=== PATIENT | female | born 1985 | race African-American/Black ===

== ENCOUNTER 2016-12-30 09:06 | Emergency (ER) | payer BC ==
[2016-12-30 09:09] VITALS: BP 116/58; PULSE 75; TEMP 98.6; BMI 25.9
[2016-12-30] MEDS ORDERED: ONDANSETRON 4 MG TABLET PO ONE (09:35)
[2016-12-30] MEDS ORDERED: ACETAMINOPHEN 325 MG TABLET (FP) PO ONE (09:35)
[2016-12-30 09:39] LABS: URINE APPEARANCE CLEAR; URINE BILIRUBIN NEGATIVE (NEGATIVE); URINE COLOR YELLOW; URINE GLUCOSE (UA) NEGATIVE (NEGATIVE); URINE KETONE TRACE (NEGATIVE); URINE NITRITE NEGATIVE (NEGATIVE); URINE PROTEIN NEGATIVE (NEGATIVE); URINE UROBILINOGEN NEGATIVE E.U./dl (0.2-1.0)
[2016-12-30 09:40] LABS: URINE BLOOD 1+ (NEGATIVE); URINE LEUK ESTERASE TRACE (NEGATIVE)
--- NOTE | 2016-12-30 09:40 | PDOC ---
History of Present Illness - General History Source: Patient - History of Present Illness Timing/Duration: reports: intermittent Quality: reports: mild Abdominal Pain Onset Location: reports: other (lower abd) <LebaneseYasir - Last Filed: 12/30/16 09:55> <Alejandra Howell - Last Filed: 12/30/16 10:24> - General Chief Complaint: Pain, Acute Stated Complaint: VOMITING Time Seen by Provider: 12/30/16 09:21 Past History - Past Medical History Other medical history: denies. - Psycho/Social/Smoking Cessation Hx Anxiety: No Suicidal Ideation: No Smoking History: Never smoked Hx Alcohol Use: No Drug/Substance Use Hx: No <Yasir Elizalde - Last Filed: 12/30/16 09:55> <Alejandra Howell - Last Filed: 12/30/16 10:24> - Past Medical History Allergies/Adverse Reactions: Allergies Allergy/AdvReac Type Severity Reaction Status Date / Time No Known Allergies Allergy Verified 12/30/16 09:07 Home Medications: Ambulatory Orders Norethindrone-E.estradiol-Iron [Lo Loestrin Fe 1-10 Tablet] 1 tab PO DAILY 12/30 Ondansetron HCl [Zofran] 4 mg PO Q8H #12 tablet 12/30/16 Review of Systems - Review of Systems Constitutional: No: Chills, Fever, Malaise ABD/GI: Yes: Nausea, Vomiting, Abdominal cramping. No: Diarrhea : No: Dysuria, Flank Pain, Hematuria <Yasir Elizalde - Last Filed: 12/30/16 09:55> *Physical Exam - Vital Signs Last Vital Signs Temp Pulse Resp BP Pulse Ox 98.6 F 75 18 116/58 100 12/30/16 09:07 12/30/16 09:07 12/30/16 09:07 12/30/16 09:07 12/30/16 09:07 - Physical Exam General Appearance: Yes: Appropriately Dressed. No: Apparent Distress HEENT: positive: Normal Voice Neck: positive: Supple Respiratory/Chest: negative: Respiratory Distress Gastrointestinal/Abdominal: positive: Soft. negative: Tender (no tenderness over mcburneys), Distended, Guarding, Rebound Musculoskeletal: negative: CVA Tenderness Integumentary: positive: Dry, Warm Neurologic: positive: Fully Oriented, Alert, Normal Mood/Affect <Yasir Elizalde - Last Filed: 12/30/16 09:55> - Vital Signs Last Vital Signs Temp Pulse Resp BP Pulse Ox 98.6 F 75 18 116/58 100 12/30/16 09:07 12/30/16 09:07 12/30/16 09:07 12/30/16 09:07 12/30/16 09:07 <Alejandra Howell - Last Filed: 12/30/16 10:24> ED Treatment Course - ADDITIONAL ORDERS Additional order review: Laboratory Results 12/30/16 09:30 Urine Color Yellow Urine Appearance Clear Urine pH 5.0 Urine Protein Negative Urine Glucose (UA) Negative Urine Ketones Trace H Urine Blood 1+ H Urine Nitrite Negative Urine Bilirubin Negative Urine Urobilinogen Negative Ur Leukocyte Esterase Trace H Urine RBC 21 Urine WBC 4 Ur Epithelial Cells Few Urine Mucus Moderate Urine HCG, Qual Negative - Medications Given in the ED: ED Medications Discontinued Medications Generic Name Dose Route Start Last Admin Trade Name Nicholas PRN Reason Stop Dose Admin Acetaminophen 650 mg 12/30/16 09:35 12/30/16 09:50 Tylenol - PO 12/30/16 09:36 650 mg ONCE ONE Administration Ondansetron HCl 4 mg 12/30/16 09:35 12/30/16 09:44 Zofran - PO 12/30/16 09:36 4 mg ONCE ONE Administration <Alejandra Howell - Last Filed: 12/30/16 10:24> Medical Decision Making - Medical Decision Making 12/30/16 09:35 31-year-old female, denies any past medical history, here with nausea, vomiting and lower abdominal pain. Patient states for the past 2 days, has had 2 e/o NB , NB vomitus and at some point developed crampy lower abdominal pain. Denies diarrhea, fever or chills. States her son has similar symptoms at home. States she called out of work today and requesting work note See exam Gastroenteritis Toddler son with similar sxs at home No RF for serious dysentery Well lorene and stable w/ benign abd M/l viral -dc w/ supportive tx <Yasir Elizalde - Last Filed: 12/30/16 09:55> *DC/Admit/Observation/Transfer <LebaneseShannan lastDmitry - Last Filed: 12/30/16 09:55> - Attestations Physician Attestion: I reviewed the case with the mid-level practitioner and agree with the mid- level practitioner's assessment, diagnosis and disposition. <Alejandra Howell - Last Filed: 12/30/16 10:24> Diagnosis at time of Disposition: Gastroenteritis - Discharge Dispostion Disposition: HOME Condition at time of disposition: Good - Prescriptions Prescriptions: Ondansetron HCl [Zofran] 4 mg PO Q8H #12 tablet - Patient Instructions Printed Discharge Instructions: Viral Gastroenteritis Additional Instructions: Maintain adequate hydration and take zofran as needed for nausea Return for worsening of symptoms - Post Discharge Activity Work/School Note: Back to Work
[2016-12-30 09:41] LABS: URINE MUCUS MODERATE; URINE RBC 21 /hpf (0-3); URINE WBC 4 /hpf (3-5)
[2016-12-30] MEDS ORDERED: ONDANSETRON *ODT* 4 MG TABLET ONE (09:41)
[2016-12-30] MEDS ORDERED: ACETAMINOPHEN 325 MG TABLET (FP) ONE (09:41)
--- NOTE | 2016-12-30 09:57 | PDOC ---
*Physical Exam - Vital Signs Last Vital Signs Temp Pulse Resp BP Pulse Ox 98.6 F 75 18 116/58 100 12/30/16 09:07 12/30/16 09:07 12/30/16 09:07 12/30/16 09:07 12/30/16 09:07 ED Treatment Course - ADDITIONAL ORDERS Additional order review: Laboratory Results 12/30/16 09:30 Urine Color Yellow Urine Appearance Clear Urine pH 5.0 Urine Protein Negative Urine Glucose (UA) Negative Urine Ketones Trace H Urine Blood 1+ H Urine Nitrite Negative Urine Bilirubin Negative Urine Urobilinogen Negative Ur Leukocyte Esterase Trace H Urine RBC 21 Urine WBC 4 Ur Epithelial Cells Few Urine Mucus Moderate Urine HCG, Qual Negative - Medications Given in the ED: ED Medications Discontinued Medications Generic Name Dose Route Start Last Admin Trade Name Nicholas PRN Reason Stop Dose Admin Acetaminophen 650 mg 12/30/16 09:35 12/30/16 09:50 Tylenol - PO 12/30/16 09:36 650 mg ONCE ONE Administration Ondansetron HCl 4 mg 12/30/16 09:35 12/30/16 09:44 Zofran - PO 12/30/16 09:36 4 mg ONCE ONE Administration *DC/Admit/Observation/Transfer Diagnosis at time of Disposition: Gastroenteritis - Discharge Dispostion Disposition: HOME Condition at time of disposition: Good - Prescriptions Prescriptions: Ondansetron HCl [Zofran] 4 mg PO Q8H #12 tablet - Referrals - Patient Instructions Printed Discharge Instructions: Viral Gastroenteritis Additional Instructions: Maintain adequate hydration and take zofran as needed for nausea Return for worsening of symptoms - Post Discharge Activity Work/School Note: Back to Work
== END 2016-12-30 10:02 | disposition home or self-care (01) ==
LOC: JER 09:06
DX: K52.9 Noninfective gastroenteritis and colitis, unspecified (principal)
CPT/HCPCS: 81003; 81015; 84703; 99283-25

== ENCOUNTER 2017-04-30 19:28 | Emergency (ER) | payer BC ==
[2017-04-30 19:55] VITALS: BP 94/62; PULSE 60; BMI 25.6
[2017-04-30 20:01] VITALS: TEMP 98.6
--- NOTE | 2017-04-30 20:05 | PDOC ---
History of Present Illness - General Stated Complaint: DISLOCATED KNEE Time Seen by Provider: 04/30/17 19:33 - History of Present Illness Initial Comments: 31 year old female with PMH of right knee dislocation presenting with right knee dislocation after over flexing it while lying in bed. Patient denies any trauma but admits to some light pain in the knee. She has not seen an orthopedic physician for the knee in the past but would like to recieve an orthopedic evaluation given her repeated episodes of dislocations recently. Denies any other symptoms or complaints. 04/30/17 20:05 Past History - Past Medical History Allergies/Adverse Reactions: Allergies Allergy/AdvReac Type Severity Reaction Status Date / Time No Known Allergies Allergy Verified 04/30/17 20:01 Home Medications: Ambulatory Orders NK [No Known Home Medication] 04/30/17 - Suicide/Smoking/Psychosocial Hx Smoking History: Never smoked Hx Alcohol Use: No Drug/Substance Use Hx: No Review of Systems - Review of Systems Constitutional: No: Chills, Fever, Loss of Appetite HEENTM: No: Blurred Vision Respiratory: No: Cough, Shortness of Breath Cardiac (ROS): No: Chest Pain, Irregular Heart Rate ABD/GI: No: Constipated, Diarrhea, Nausea : No: Burning, Dysuria, Discharge Musculoskeletal: Yes: Joint Pain Integumentary: No: Bruising, Change in Color Neurological: No: Headache, Paresthesia *Physical Exam - Physical Exam General Appearance: Yes: Appropriately Dressed. No: Apparent Distress HEENT: positive: KRISTY, Normal Voice Neck: positive: Trachea midline, Normal Thyroid, Supple. negative: Tender, Rigid Respiratory/Chest: positive: Lungs Clear, Normal Breath Sounds. negative: Chest Tender, Respiratory Distress, Accessory Muscle Use Cardiovascular: positive: Regular Rhythm, Regular Rate. negative: S1, S2 Gastrointestinal/Abdominal: positive: Normal Bowel Sounds, Flat, Soft. negative : Tender Musculoskeletal: positive: Normal Inspection Extremity: positive: Tender (Slgihtly tender right patella.). negative: Normal Inspection, Normal Range of Motion (Right patella subluxed inferior from the normal location as comapred to left knee with decreased flexion due to pain.) Integumentary: positive: Normal Color, Dry, Warm Neurologic: positive: Fully Oriented, Alert, Normal Mood/Affect Procedures - Joint Reduction Right Joint Reduction Site: right: Knee Pre-Procedure NV Exam: normal Conscious Sedation: No Reduction Attempts: 1 Post-Procedure NV Exam: normal Complications: No Post Joint Reduction Film: joint reduced Splint: No Immobilized: Yes Progress: Knee reduced with slight manipulation of patella with extension of knee. Full ROM without pain afterwards. Patient able to ambulate with only slight pain post procedure. 04/30/17 20:16 Medical Decision Making - Medical Decision Making 31 year old healthy female with history of right knee dislocations presenting with right knee dislocation that was easliy reduced per procedure note. Will place in knee immobilizer and give ortho follow up as post reduction films show adequate relocation without acute pathology. 04/30/17 20:19 *DC/Admit/Observation/Transfer Diagnosis at time of Disposition: Right knee dislocation Qualifiers: Encounter type: initial encounter Qualified Code(s): S83.104A - Unspecified dislocation of right knee, initial encounter - Discharge Dispostion Disposition: HOME Condition at time of disposition: Improved Admit: No - Referrals Referrals: Gene Day MD [Staff Physician] - - Patient Instructions Printed Discharge Instructions: DI for Patellar Dislocation Additional Instructions: Please wear the knee immobilizer as much as possible. Please use Tylenol or Motrin for pain. Please make an appointment with the orthopedic physician as soon as possible.
--- NOTE | 2017-04-30 21:42 | PDOC ---
Attending Attestation - Resident Resident Name: Gissell Lloyd - HPI HPI: 04/30/17 21:41 Pt came with a dislocated knee; she had had this multiple times. - Physicial Exam PE: 04/30/17 21:42 Agree with resident exam - Medical Decision Making 04/30/17 21:42 pt's knee xray after relocation is WNL. Pt placed in knee immobilizer and she must follow with ortho.
== END 2017-04-30 21:35 | disposition home or self-care (01) ==
LOC: JER 19:28
PROC: 0QSDXZZ Reposition Right Patella, External Approach (ICD-10-PCS; principal; 2017-04-30)
DX: S83.104A Unspecified dislocation of right knee, initial encounter (principal); X58.XXXA Exposure to other specified factors, initial encounter; Y93.89 Activity, other specified; Y92.003 Bedroom of unspecified non-institutional (private) residence as the place of occurrence of the external cause
CPT/HCPCS: 73564-TC-RT; 84703; 99282-25